=== PATIENT | female | born 1980 | race American Indian/Alaskan Native ===

== ENCOUNTER 2021-01-17 11:25 | Emergency (ER) | payer OTHER ==
[2021-01-17 11:42] VITALS: BP 133/74
--- NOTE | 2021-01-17 13:24 | Emergency Department Report ---
ED General Adult HPI - General Chief complaint: Chest Pain Stated complaint: LT CHEST PAIN,CONSTIPATION HEMORROID Time Seen by Provider: 01/17/21 13:18 Source: patient Mode of arrival: Ambulatory Limitations: No Limitations - History of Present Illness Initial comments: Patient is 41 years old female with no significant past medical history. Patient presented to the ER with multiple complaints. Patient stated that she had chest pain few days ago but is completely resolved. Patient described her chest pain as sharp with no radiation. Patient also complaining of whitish vaginal discharge with itching. She also stated that she has been having trouble with her hemorrhoid. Patient denied any fever or chills. No shortness of breath, cough, nausea or vomiting. - Related Data Allergies Allergy/AdvReac Type Severity Reaction Status Date / Time No Known Allergies Allergy Unverified 01/17/21 11:39 ED Review of Systems ROS: Stated complaint: LT CHEST PAIN,CONSTIPATION HEMORROID Other details as noted in HPI Comment: All other systems reviewed and negative Constitutional: denies: chills, fever Respiratory: denies: cough, shortness of breath, SOB with exertion, SOB at rest Cardiovascular: chest pain. denies: palpitations, dyspnea on exertion Gastrointestinal: denies: abdominal pain, nausea, vomiting Musculoskeletal: denies: back pain Neurological: denies: headache, weakness, numbness, paresthesias, confusion ED Past Medical Hx - Past Medical History Previous Medical History?: Yes Hx Asthma: Yes - Surgical History Past Surgical History?: Yes Additional Surgical History: TL ED Physical Exam - General Limitations: No Limitations General appearance: alert, in no apparent distress - Head Head exam: Present: atraumatic, normocephalic, normal inspection - Eye Eye exam: Present: normal appearance, PERRL - ENT ENT exam: Present: normal exam, normal orophraynx, mucous membranes moist - Neck Neck exam: Present: normal inspection, full ROM. Absent: tenderness, meningismus - Respiratory Respiratory exam: Present: normal lung sounds bilaterally - Cardiovascular Cardiovascular Exam: Present: regular rate, normal rhythm, normal heart sounds - GI/Abdominal GI/Abdominal exam: Present: soft, normal bowel sounds. Absent: distended, tenderness, guarding, rebound, rigid, organomegaly, mass, bruit, pulsatile mass, hernia - Rectal Rectal exam: Present: hemorrhoids - External exam: Present: erythema. Absent: swelling - Extremities Exam Extremities exam: Present: normal inspection, full ROM, normal capillary refill. Absent: tenderness - Back Exam Back exam: Present: normal inspection, full ROM. Absent: CVA tenderness (R), CVA tenderness (L) - Neurological Exam Neurological exam: Present: alert, oriented X3, CN II-XII intact, normal gait, reflexes normal. Absent: motor sensory deficit - Psychiatric Psychiatric exam: Present: normal mood - Skin Skin exam: Present: warm, intact, normal color ED Course Vital Signs 01/17/21 11:40 Temperature 98.6 F Pulse Rate 74 Respiratory 18 Rate Blood Pressure 133/74 O2 Sat by Pulse 98 Oximetry ED Medical Decision Making - EKG Data -: EKG Interpreted by Me EKG shows normal: sinus rhythm Rate: normal - EKG Data Interpretation: no acute changes - Medical Decision Making Patient is 41 years old female with no significant past medical history. Patient presented to the ER with multiple complaints. Patient stated that she had chest pain few days ago but is completely resolved. Patient described her chest pain as sharp with no radiation. Patient also complaining of whitish vaginal discharge with itching. She also stated that she has been having trouble with her hemorrhoid. Patient denied any fever or chills. No shortness of breath, cough, nausea or vomiting. EKG is unremarkable. Exam revealed hemorrhoid, nonthrombosed. Also patient has vaginal candidiasis. Patient received prescription for Anusol and Diflucan and advised to follow-up with her primary care physician in the next 2 to 3 days and to return to the ER she develop any new symptoms. Critical care attestation.: If time is entered above; I have spent that time in minutes in the direct care of this critically ill patient, excluding procedure time. ED Disposition Clinical Impression: Acute chest pain, Vaginal candidiasis, Hemorrhoids Disposition: HOME / SELF CARE / HOMELESS Is pt being admited?: No Condition: Stable Instructions: Chest Pain (ED), Hemorrhoids, [id number], Vaginal Yeast Infection, Adult Referrals: PRIMARY CARE, [Referring] - 3-5 Days
--- NOTE | 2021-01-18 14:25 | Electrocardiograph Report ---
[facility] Test Date: 2021-01-17 Test Time: 11:43:47 Pat Name: ELIE HOWARD Department: Room: Gender: F Sterilization Tech: PANCHO : 1980 Requested By: OLGA KIM Order Number: [id number] Reading MD: Shahnaz Ruzi Measurements Intervals [place] Rate: 76 P: 37 RI: 145 QRS: 27 QRSD: 91 T: 20 QT: 392 QTc: 442 Interpretive Statements Sinus rhythm No previous ECG available for comparison Electronically Signed On 01-18-2021 14:25:17 EDT by Shahnaz Ruiz
== END 2021-01-17 13:50 | disposition home or self-care (01) ==
LOC: ED 11:25
DX: B37.3 Candidiasis of vulva and vagina (principal); K64.9 Unspecified hemorrhoids; R07.9 Chest pain, unspecified; J45.909 Unspecified asthma, uncomplicated; Z98.890 Other specified postprocedural states
CPT/HCPCS: 93005; 99281